=== PATIENT | female | born 1985 | race Caucasian/White ===

== ENCOUNTER → 2016-11-28 | Outpatient (CLI) | payer OTHER ==
[~2016-11-28] MED LIST: BCTCR/30 EXT
--- NOTE | 2016-11-28 12:35 | MAMMOGRAPHY REPORT ---
ULTRASOUND OF LEFT BREAST: 11/28/2016 CLINICAL HISTORY: The patient had a surgical excision of a left axillary lipoma in 2009. The patien t reports a new lump in the general region. COMPARISON: No prior exams were available for comparison. TECHNIQUE: Real-time targeted ultrasound of the left breast was performed. FINDINGS: Real-time, high resolution targeted ultrasound was performed of the left axilla at the site of the p alpable lump pointed out by the patient. No suspicious masses or other suspicious sonographic abnor malities are noted. No discrete encapsulated fatty mass is seen to suggest a lipoma, although somet imes lipomas cannot be distinguished from normal fatty tissue on ultrasound. Incidentally noted is a morphologically normal left axillary lymph node measuring 7 x 5 mm. IMPRESSION: ACR BI-RADS CATEGORY 2: BENIGN No suspicious sonographic abnormality at the site of the left axillary lump. There is no clear evid ence of a lipoma on ultrasound. There is no sonographic evidence of malignancy. Recommend clinical follow-up. Gisela Fernandez M.D. ah/:11/28/2016 09:52:16 Attending Technologist: Rolan Roberts RT(R)(M), [facility] Inspector Soldering: Gisela Fernandez MD, [facility] letter sent: Normal 1/2 BI-RADS Code: ACR BI-RADS Category 2: Benign
== END | disposition home or self-care (01) ==
LOC: C.MAMM 09:22
PROVIDERS: ATTEND Nurse Practitioner Women's Health
DX: N63 Unspecified lump in breast (principal)

== ENCOUNTER 2017-05-03 21:28 | Emergency (ER) | payer OTHER ==
[~2017-05-03] VITALS: Ht 156.2 cm; Wt 80.8 kg
[2017-05-03 21:29] VITALS: Ht 156.2 cm; Wt 80.8 kg
--- NOTE | 2017-05-03 21:50 | EMERGENCY ROOM VISIT NOTE ---
History Report prepared by Melania: Drake Breen Under the Supervision of: Dr. Mike Patterson M.D. First contact with patient: 21:35 Chief Complaint: RASH Stated Complaint: RASH ON RIGHT HAND History of Present Illness The patient is a 31 year old female who presents to the Emergency Room with complaints of a worsening/spreading rash over the right hand that the patient first noticed last Saturday, 5 days ago. She states that the rash is burning, but there is no itching. The patient claims that she has a history of rashes on her hands, but they are usually more raised lesions. This rash is unusual for what she has experienced. 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 She denies any recent fevers or headaches. She has applied a steroid cream to the hand, without improvement. 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 A total of 10 systems reviewed and were otherwise negative. Past Medical & Surgical Old medical records were reviewed. Nurse's notes were reviewed and I agree with. 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 Normal speech HEENT: Normal cephalic atraumatic. Pupils are equal round and reactive to light. Extraocular movements are intact. Oropharynx is pink with moist mucous membranes. No swelling of the mouth lips or tongue. Neck: Supple with a midline trachea. No meningeal signs or stiffness, no JVD or bruits. No Stridor. Chest: Clear to auscultation bilaterally. No wheezes or rhonchi. No increased work of breathing. Heart: regular rate and rhythm. Abdomen: Soft nontender, nondistended without rebound guarding or rigidity. Extremities: No cyanosis clubbing or edema. No calf tenderness or assymetry Spine/Back. Non tender to palpation. No CVA tenderness Skin: Good turgor without rashes. Right hand: dorsal aspect between the thumb and second finger is a red rash that blanches, appears most consistent with dry skin, no pustules. Neurologic exam: Cranial nerves two through 12 are intact. Motor and sensation are intact and symmetrical throughout. Medical Decision & Procedures Laboratory Results 05/03/17 21:55 Red Blood Count 4.81, Mean Corpuscular Volume 87.5, Mean Corpuscular Hemoglobin 28.5, Mean Corpuscular Hemoglobin Concent 32.5, Mean Platelet Volume 11.9, Neutrophils (%) (Auto) 60.2, Lymphocytes (%) (Auto) 32.7, Monocytes (%) (Auto) 5.3, Eosinophils (%) (Auto) 1.4, Basophils (%) (Auto) 0.2, Neutrophils # (Auto) 5.47, Lymphocytes # (Auto) 2.97, Monocytes # (Auto) 0.48, Eosinophils # (Auto) 0.13, Basophils # (Auto) 0.02 05/03/17 21:55 Test 05/03/17 21:55 White Blood Count 9.09 K/uL (4.8-10.8) Red Blood Count 4.81 M/uL (4.2-5.4) Hemoglobin 13.7 g/dL (12.0-16.0) Hematocrit 42.1 % (37-47) Mean Corpuscular Volume 87.5 fL (80-100) Mean Corpuscular Hemoglobin 28.5 pg (25-34) Mean Corpuscular Hemoglobin Concent 32.5 g/dl (32-36) Platelet Count 174 K/uL (130-400) Mean Platelet Volume 11.9 fL (7.4-10.4) Neutrophils (%) (Auto) 60.2 % Lymphocytes (%) (Auto) 32.7 % Monocytes (%) (Auto) 5.3 % Eosinophils (%) (Auto) 1.4 % Basophils (%) (Auto) 0.2 % Neutrophils # (Auto) 5.47 K/uL (1.4-6.5) Lymphocytes # (Auto) 2.97 K/uL (1.2-3.4) Monocytes # (Auto) 0.48 K/uL (0.11-0.59) Eosinophils # (Auto) 0.13 K/uL (0-0.5) Basophils # (Auto) 0.02 K/uL (0-0.2) RDW Standard Deviation 44.6 fL (36.4-46.3) RDW Coefficient of Variation 13.8 % (11.5-14.5) Immature Granulocyte % (Auto) 0.2 % Immature Granulocyte # (Auto) 0.02 K/uL (0.00-0.02) Anion Gap 6.0 mmol/L (3-11) Est Creatinine Clear Calc Drug Dose 115.5 ml/min Estimated GFR () 135.7 Estimated GFR (Non- 117.1 BUN/Creatinine Ratio 23.7 (10-20) Calcium Level 8.8 mg/dl (8.5-10.1) Total Bilirubin 0.1 mg/dl (0.2-1) Direct Bilirubin < 0.1 mg/dl (0-0.2) Aspartate Amino Transf (AST/SGOT) 13 U/L (15-37) Alanine Aminotransferase (ALT/SGPT) 17 U/L (12-78) Alkaline Phosphatase 82 U/L (45-117) Total Protein 7.4 gm/dl (6.4-8.2) Albumin 3.6 gm/dl (3.4-5.0) Lipase 229 U/L (73-393) Laboratory studies as stated above per my review. Medications Administered Medications (Trade) Dose Ordered Sig/Michael Route Start Time Stop Time Status Last Admin Dose Admin Mupirocin (Bactroban 2% Oint) 1 appln ONE STAT EXT 05/03/17 22:46 05/03/17 22:48 DC 05/03/17 23:00 1 APPLN ED Course 2135: Past medical records reviewed. The patient was evaluated in room A9, and a complete history and physical examination were performed. 5: Ordered Mupirocin 1 application EXT. 2252: Upon reevaluation, the patient is resting in bed. I discussed the results and treatment plan with her. She verbalized agreement of the treatment plan. The patient was discharged home. Medical Decision Differential diagnosis includes; Rash, dry skin, cellulitis, MRSA, abscess. This patient comes in as described above. She has a minimal rash on the dorsal aspect her right hand between the thumb and index finger it does not appear to be cellulitic. There is no pustules. The is most likely more of a dry scan it does not appear to be fungal. 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 She's requested blood work . She says that he always get blood work as she gets weird rashes. She has no white count . She's had no significant fever. She has normal platelets. The rash is not vasculitic appearing. She's no acute electrolyte or metabolic abnormalities. She has nothing to suggest kidney or liver disease. I will have her continue use the steroid that she's been using given her Bactrim history of also have her use mupirocin Bactroban topically twice a day. She was encouraged return if: redness or swelling, increases fever or chillsm any new problems or concerns. She is happy with the plan and was discharged to home. Medication Reconcilliation Current Medication List: was personally reviewed by me Blood Pressure Screening Patient's blood pressure: Normal blood pressure Impression Primary Impression: Rash Scribe Attestation The scribe's documentation has been prepared under my direction and personally reviewed by me in its entirety. I confirm that the note above accurately reflects all work, treatment, procedures, and medical decision making performed by me. Departure Information Dispostion Home / Self-Care Prescriptions Mupirocin 2% (Bactroban 2%) 30 Gm Cr 1 APPLN EXT UD for 7 Days, #1 TUBE Prov: Mike Patterson M.D. 05/03/17 Referrals No Doctor, Assigned (PCP) Forms HOME CARE DOCUMENTATION FORM, IMPORTANT VISIT INFORMATION, WORK / SCHOOL INSTRUCTIONS Patient Instructions My [facility] Additional Instructions Rest Continue to use your steroid cream but May also use Bactroban cream twice a day Return if: Worsening of rash, pain, numbness or weakness, any new problems or concerns.
[2017-05-03 22:06] LABS: BASO % 0.2 %; BASO ABS # 0.02 K/uL (0-0.2); COMPLETE YES; EOS % 1.4 %; HEMATOCRIT 42.1 % (37-47); IG% 0.2 %; LYMPH % 32.7 %; LYMPH ABS # 2.97 K/uL (1.2-3.4); MEAN CELL VOLUME 87.5 fL (80-100); MEAN CORPUSCULAR HEMOGLOBIN 28.5 pg (25-34); MEAN CORPUSCULAR HGB CONC 32.5 g/dl (32-36); MEAN PLATELET VOLUME 11.9 fL (7.4-10.4); MONO % 5.3 %; NEUT % 60.2 %; PLATELET COUNT 174 K/uL (130-400); RED BLOOD COUNT 4.81 M/uL (4.2-5.4); WHITE BLOOD COUNT 9.09 K/uL (4.8-10.8)
[2017-05-03 22:22] LABS: ALT/SGPT 17 U/L (12-78); BLOOD UREA NITROGEN 17 mg/dl (7-18); BUN/CREATININE RATIO 23.7 (10-20); CALCIUM 8.8 mg/dl (8.5-10.1); CARBON DIOXIDE 26 mmol/L (21-32); CHLORIDE 108 mmol/L (98-107); GLUCOSE 91 mg/dl (70-99); POTASSIUM 3.8 mmol/L (3.5-5.1); SODIUM 140 mmol/L (136-145)
[2017-05-03 22:25] LABS: ALKALINE PHOSPHATASE 82 U/L (45-117); AST/SGOT 13 U/L (15-37)
[2017-05-03 22:35] VITALS: BP 140/79; PULSE 85; TEMP 36.9; O2SAT 96
[2017-05-03] MEDS ORDERED: MUPIROCIN 2% OINT 22 GM TUBE EXT STA (22:46)
[2017-05-03] MEDS ORDERED: BCTCR/30 EXT (22:50)
== END 2017-05-03 23:00 | disposition home or self-care (01) ==
LOC: C.EDB 21:29 → C.EDA 23:00
DX: R21 Rash and other nonspecific skin eruption (principal); R20.8 Other disturbances of skin sensation; Z86.14 Personal history of Methicillin resistant Staphylococcus aureus infection